=== PATIENT | male | born 1945 | race Caucasian/White ===

== ENCOUNTER 2022-01-31 13:47 | Emergency (ER) | payer OTHER, SELFPAY ==
[2022-01-31] VITALS (24 sets, daily range): BP systolic 136–165; BP diastolic 64–95; PULSE 49–108; RESP 15–25; TEMP 35.7; O2SAT 96–100; BMI 25.0
--- NOTE | 2022-01-31 13:59 | DI.CT.S_ITS ---
PROCEDURE: CT ANGIO CHEST PE PROTOCOL INDICATIONS: sob, hx of PE TECHNIQUE: After the administration of intravenous contrast, 2 mm thick sections acquired from the pulmonary apices to the posterior costophrenic angles. 3-dimensional maximum intensity projection (MIP) coronal and sagittal reformats were then acquired through the thorax. For radiation dose reduction, the following was used: automated exposure control, adjustment of mA and/or kV according to patient size. COMPARISON: None. FINDINGS: Image quality: Excellent. Pulmonary arteries: Pulmonary arteries are normal in size, and demonstrate no intraluminal filling defects to suggest central pulmonary embolism. Lungs and pleura: Lungs are clear. Mild pulmonary interstitial fibrosis. There is a bibasilar predominance. No pleural effusions or pneumothorax. Central and peripheral airways are patent. Mediastinum: Heart size is normal, without pericardial effusion. No mediastinal or hilar adenopathy. Thoracic aorta is normal in caliber and enhancement. Esophagus is normal in caliber, without hiatal hernia. Bones and chest wall: No suspicious bony lesions. Ribs and thoracic spine appear intact throughout. Thyroid gland is unremarkable. No axillary or supraclavicular adenopathy. Abdomen: Calcified gallstones are present in the gallbladder. IMPRESSION: 1. No evidence acute pulmonary emboli. 2. Mild chronic interstitial pulmonary fibrosis. 3. Cholelithiasis. Dictated by: Bowen Michele M.D. on 01/31/2022 at 15:11 Approved by: Bowen Michele M.D. on 01/31/2022 at 15:14
--- NOTE | 2022-01-31 13:59 | DI.RAD.S_ITS ---
PROCEDURE: XR CHEST 1V INDICATIONS: chest pain TECHNIQUE: One view of the chest was acquired. COMPARISON: None. FINDINGS: Surgical changes and devices: None. Lungs and pleura: There is hyperinflation and chronic interstitial changes without focal infiltrate, pleural effusion or pneumothorax. Bibasilar atelectasis and or infiltrate noted. Mediastinum: Mediastinal contours appear normal. Heart size is normal. Bones and chest wall: No suspicious bony lesions. Overlying soft tissues appear unremarkable. IMPRESSION: Hyperinflation, chronic interstitial changes, and superimposed bibasilar mild atelectasis and or infiltrate. Approved by: En Rudolph M.D. on 01/31/2022 at 14:36
[2022-01-31 14:25] LABS: Add Manual Diff / Slide Review NO; Basophils Absolute Auto 100 /uL (0-100); Basophils Percent Auto 1.2 % (0-2); Eosinophils Absolute Auto 200 /uL (0-450); Eosinophils Percent Auto 3.3 % (2-4); Hematocrit 36.8 % (41-53); Hemoglobin 12.7 g/dL (13.5-17.5); Lymphocytes Absolute Auto 1000 /uL (1100-4500); Mean Corpuscular HGB Conc 34.5 % (30-36); Mean Corpuscular Hemoglobin 32.2 PG (26-34); Mean Corpuscular Volume 93.3 fL (80-100); Monocytes Absolute Auto 700 /uL (0-900); Monocytes Percent Auto 14.4 % (3-14); Neutrophils Absolute Auto 2800 /uL (1500-7000); Neutrophils Percent Auto 59.1 % (50-75); Platelet Count 196 X10^3/uL (150-400); Red Blood Cell Count 3.94 X10^6/uL (4.5-5.9); Red Cell Distribution Width 13.6 % (11.6-14.8); White Blood Cell Count 4.8 X10^3/uL (4.5-11.0)
[2022-01-31 14:28] LABS: INR 1.2 (0.9-1.3); Prothrombin Time 13.3 SECONDS (10.1-12.7)
[2022-01-31 14:31] LABS: PTT Partial Thromboplastin Tim 29 SECONDS (26-36)
[2022-01-31 14:33] LABS: Alanine Aminotransferase 14 IU/L (<50); Albumin Globulin Ratio 1.2 (1.0-2.8); Alkaline Phosphatase 49 U/L (38-126); Aspartate Aminotransferase 59 IU/L (17-59); BUN Creatinine Ratio 18.5 (6-22); Bilirubin Total 0.5 mg/dL (0.2-1.3); Blood Urea Nitrogen 15 mg/dL (9-20); Calcium 8.8 mg/dL (8.4-10.2); Carbon Dioxide 29 mmol/L (22-32); Chloride 101 mmol/L (98-107); Creatine Kinase 70 U/L (55-170); Estimated Glomerular Filt Rate > 60 mL/min (>60); Globulin 3.4 g/dL (1.7-4.1); Glucose 112 mg/dL (80-110); HEMOLYSIS < 15 (0-50); Lipase 96 U/L (23-300); Potassium 4.6 mmol/L (3.4-5.1); Sodium 136 mmol/L (137-145); Total Protein 7.4 g/dL (6.3-8.2)
[2022-01-31 14:45] LABS: NT-proBNP (BNP-Adult 18+) 332 pg/mL (<450); Troponin I 0.072 ng/mL (0.01-0.034)
[2022-01-31 14:57] LABS: COVID19 -Nasal RAPID Negative (Negative)
--- NOTE | 2022-01-31 17:45 | ED_ITS ---
HPI - SOB/Dyspnea <Susanna Davila DO - Last Filed: 01/31/22 19:26> General Chief Complaint: Shortness of Breath/Dyspnea Stated Complaint: SOB Time Seen by Provider: 01/31/22 13:59 Source: patient Mode of arrival: Ambulatory Limitations: no limitations History of Present Illness HPI Narrative: This is a 76 year old male with history of pulmonary emboli after prolonged flight and GERD. Patient states that yesterday he felt a little bit short of breath. He states that this started while he was sitting on the couch. Today in the morning he went for his usual walk he usually walks quite extensively and states he became very short of breath and was unable to continue his walk. Patient states that he returned home rested but took a prolonged period of time for him to catch his breath. He states he had a little bit of mild chest pressure during this which has resolved. He states that his shortness of breath has improved he feels very mildly short of breath still. Denies fevers or chills. No cold cough or congestion. No diaphoresis. No syncope or lightheadedness. No nausea or vomiting. No other GI or urinary symptoms. No swelling in extremities. Patient has not had any prior cardiac interventions or stents, no prior surgeries. No known drug allergies. No tobacco, 1 alcoholic drink nightly, no illicit. He is accompanied by his . Related Data Home Medications Medication Instructions Recorded Confirmed lutein 20 mg tablet 20 mg PO DAILY 07/02/20 12/21/20 Previous Rx's Medication Instructions Recorded tadalafil 20 mg tablet 20 mg PO DAILY PRN sexual activity 05/16/21 #30 tabs pantoprazole 40 mg tablet,delayed 40 mg PO DAILY #90 tabs 09/05/21 release Allergies Allergy/AdvReac Type Severity Reaction Status Date / Time No Known Drug Allergies Allergy Unverified 12/21/20 13:23 Review of Systems <Susanna Davila DO - Last Filed: 01/31/22 19:26> Review of Systems ROS Unobtainable: All systems reviewed & are unremarkable except as noted in HPI and below Patient History <Susanna Davila DO - Last Filed: 01/31/22 19:26> Medical History Pulmonary embolism Social History Smoking Status: Former smoker Smoking Status: Former smoker alcohol intake frequency: holidays/special occasions only Substance Use Type: does not use Exam <Susanna Davila DO - Last Filed: 01/31/22 19:26> Narrative Exam Narrative: GENERAL: Alert and oriented x three, mild distress HEENT: Head normocephalic, atraumatic, EOMI, pupils reactive, face symmetric, moist mucous membranes NECK: Supple, full range of motion CARDIOVASCULAR: Regular rate and rhythm without murmurs, rubs or gallops. RESPIRATORY: Breath sounds equal bilaterally, no wheezes rales or rhonchi. ABDOMEN: Soft, nontender. Normoactive bowel sounds all 4 quadrants. No guarding or rebound, rigidity, no mass : No CVA tenderness EXTREMITIES: Normal range of motion, no clubbing or edema. Neurovascularly inta ct NEUROLOGICAL: Cranial nerves II through XII grossly intact. Moving all extremities SKIN: Warm, dry, no petechiae, no rashes or lesions. Initial Vital Signs Initial Vital Signs: Vital Signs Temperature 96.3 F L 01/31/22 13:55 Pulse Rate 61 01/31/22 13:55 Respiratory Rate 16 01/31/22 13:55 Blood Pressure 154/73 H 01/31/22 13:55 Pulse Oximetry 100 01/31/22 13:55 Oxygen Delivery Method 01/31/22 13:55 <Viviana Rivera MD - Last Filed: 02/01/22 08:21> Initial Vital Signs Initial Vital Signs: Vital Signs Temperature 96.3 F L 01/31/22 13:55 Pulse Rate 61 01/31/22 13:55 Respiratory Rate 16 01/31/22 13:55 Blood Pressure 154/73 H 01/31/22 13:55 Pulse Oximetry 100 01/31/22 13:55 Oxygen Delivery Method 01/31/22 13:55 Course <Susanna Davila DO - Last Filed: 01/31/22 19:26> Orders Ordered: Discontinued Medications Aspirin (Aspirin 81 Mg Chew Tab) 324 mg PO NOW ONE Stop: 01/31/22 17:52 Last Admin: 01/31/22 18:22 Dose: 324 mg Documented By: NR Atorvastatin Calcium (Atorvastatin 20 Mg Tablet) 80 mg PO BEDTIME [facility] Last Admin: 01/31/22 21:09 Dose: 80 mg Documented By: NR Heparin Sodium (Porcine) (Heparin 5,000 Unit/Ml Vial) 5,000 unit IV NOW ONE Stop: 01/31/22 17:52 Last Admin: 01/31/22 18:22 Dose: 5,000 unit Documented By: NR Heparin Sodium/Dextrose (Heparin Drip) 25,000 unit in 500 mls @ 20.14 mls/hr IV CONT [facility]; Protocol Last Titration: 01/31/22 23:41 Dose: 12 units/kg/hr, 20.14 mls/hr Documented By: Admin: 01/31/22 18:23 Dose: 12 units/kg/hr, 20.14 mls/hr Documented By: NR Morphine Sulfate (Morphine 2 Mg/Ml Inj) 2 mg IV Q5MIN PRN PRN Reason: Chest Pain Naloxone HCl (Naloxone 0.4 Mg/Ml Vial) 0.2 mg IV Q2MIN PRN PRN Reason: Opiate Reversal Nitroglycerin (Nitroglycerin 0.4 Mg Sl Tab) 0.4 mg SL [id number] PRN PRN Reason: chest pain Nitroglycerin (Nitroglycerin Oint 1 Inch/Gm Oint...G.) 0.5 inch TOP NOW ONE Stop: 01/31/22 21:58 Last Admin: 01/31/22 22:20 Dose: 0.5 inch Documented By: RICHY Pantoprazole Sodium (Pantoprazole 40 Mg Vial) 20 mg IV BID [facility] Last Admin: 01/31/22 21:09 Dose: 20 mg Documented By: LORELEI Consultations Consultation #1: Dr. Hadley, cardiology at [facility]. Agrees with current plan, aspirin heparin nitro if needed for recurrent chest pain or pressure. Statin therapy and seeking placement some place that has catheterization availability. Time: 18:32 Vital Signs Vital signs: Vital Signs - 8 hr 01/31/22 13:55 01/31/22 16:26 01/31/22 16:27 Temperature 96.3 F L Pulse Rate 61 61 61 Respiratory Rate 16 Blood Pressure 154/73 H Pulse Oximetry 100 99 100 Oxygen Delivery Method Room Air 01/31/22 16:27 01/31/22 16:30 01/31/22 16:31 Temperature Pulse Rate 60 60 Respiratory Rate 25 H 24 Blood Pressure 143/95 H Pulse Oximetry 99 100 Oxygen Delivery Method 01/31/22 16:31 01/31/22 17:00 01/31/22 17:01 Temperature Pulse Rate 55 L Respiratory Rate 25 H Blood Pressure 165/76 H 142/65 H Pulse Oximetry 100 Oxygen Delivery Method 01/31/22 17:01 01/31/22 17:30 01/31/22 17:30 Temperature Pulse Rate 55 L 54 L Respiratory Rate 21 20 Blood Pressure 138/64 Pulse Oximetry 100 100 Oxygen Delivery Method 01/31/22 18:10 01/31/22 18:28 01/31/22 18:28 Temperature Pulse Rate 57 L 94 H Respiratory Rate Blood Pressure 164/71 H Pulse Oximetry 96 97 Oxygen Delivery Method 01/31/22 18:30 01/31/22 19:00 01/31/22 19:30 Temperature Pulse Rate 69 108 H Respiratory Rate Blood Pressure Pulse Oximetry 100 99 99 Oxygen Delivery Method 01/31/22 20:00 01/31/22 20:01 01/31/22 20:01 Temperature Pulse Rate 67 79 Respiratory Rate Blood Pressure 153/74 H Pulse Oximetry 98 98 Oxygen Delivery Method 01/31/22 20:30 01/31/22 21:00 01/31/22 21:30 Temperature Pulse Rate 53 L 55 L 55 L Respiratory Rate 15 16 Blood Pressure Pulse Oximetry 99 99 100 Oxygen Delivery Method <Viviana Rivera MD - Last Filed: 02/01/22 08:21> Orders Ordered: Discontinued Medications Aspirin (Aspirin 81 Mg Chew Tab) 324 mg PO NOW ONE Stop: 01/31/22 17:52 Last Admin: 01/31/22 18:22 Dose: 324 mg Documented By: LORELEI Atorvastatin Calcium (Atorvastatin 20 Mg Tablet) 80 mg PO BEDTIME [facility] Last Admin: 01/31/22 21:09 Dose: 80 mg Documented By: LORELEI Heparin Sodium (Porcine) (Heparin 5,000 Unit/Ml Vial) 5,000 unit IV NOW ONE Stop: 01/31/22 17:52 Last Admin: 01/31/22 18:22 Dose: 5,000 unit Documented By: LORELEI Heparin Sodium/Dextrose (Heparin Drip) 25,000 unit in 500 mls @ 20.14 mls/hr IV CONT [facility]; Protocol Last Titration: 01/31/22 23:41 Dose: 12 units/kg/hr, 20.14 mls/hr Documented By: Admin: 01/31/22 18:23 Dose: 12 units/kg/hr, 20.14 mls/hr Documented By: LORELEI Morphine Sulfate (Morphine 2 Mg/Ml Inj) 2 mg IV Q5MIN PRN PRN Reason: Chest Pain Naloxone HCl (Naloxone 0.4 Mg/Ml Vial) 0.2 mg IV Q2MIN PRN PRN Reason: Opiate Reversal Nitroglycerin (Nitroglycerin 0.4 Mg Sl Tab) 0.4 mg SL [id number] PRN PRN Reason: chest pain Nitroglycerin (Nitroglycerin Oint 1 Inch/Gm Oint...G.) 0.5 inch TOP NOW ONE Stop: 01/31/22 21:58 Last Admin: 01/31/22 22:20 Dose: 0.5 inch Documented By: RICHY Pantoprazole Sodium (Pantoprazole 40 Mg Vial) 20 mg IV BID [facility] Last Admin: 01/31/22 21:09 Dose: 20 mg Documented By: LORELEI Vital Signs Vital signs: Vital Signs - 8 hr 01/31/22 13:55 01/31/22 16:26 01/31/22 16:27 Temperature 96.3 F L Pulse Rate 61 61 61 Respiratory Rate 16 Blood Pressure 154/73 H Pulse Oximetry 100 99 100 Oxygen Delivery Method Room Air 01/31/22 16:27 01/31/22 16:30 01/31/22 16:31 Temperature Pulse Rate 60 60 Respiratory Rate 25 H 24 Blood Pressure 143/95 H Pulse Oximetry 99 100 Oxygen Delivery Method 01/31/22 16:31 01/31/22 17:00 01/31/22 17:01 Temperature Pulse Rate 55 L Respiratory Rate 25 H Blood Pressure 165/76 H 142/65 H Pulse Oximetry 100 Oxygen Delivery Method 01/31/22 17:01 01/31/22 17:30 01/31/22 17:30 Temperature Pulse Rate 55 L 54 L Respiratory Rate 21 20 Blood Pressure 138/64 Pulse Oximetry 100 100 Oxygen Delivery Method 01/31/22 18:10 01/31/22 18:28 01/31/22 18:28 Temperature Pulse Rate 57 L 94 H Respiratory Rate Blood Pressure 164/71 H Pulse Oximetry 96 97 Oxygen Delivery Method 01/31/22 18:30 01/31/22 19:00 01/31/22 19:30 Temperature Pulse Rate 69 108 H Respiratory Rate Blood Pressure Pulse Oximetry 100 99 99 Oxygen Delivery Method 01/31/22 20:00 01/31/22 20:01 01/31/22 20:01 Temperature Pulse Rate 67 79 Respiratory Rate Blood Pressure 153/74 H Pulse Oximetry 98 98 Oxygen Delivery Method 01/31/22 20:30 01/31/22 21:00 01/31/22 21:30 Temperature Pulse Rate 53 L 55 L 55 L Respiratory Rate 15 16 Blood Pressure Pulse Oximetry 99 99 100 Oxygen Delivery Method MDM - SOB/Dyspnea <Susanna Davila, - Last Filed: 01/31/22 19:26> Lab Data Result diagrams: 01/31/22 14:05 01/31/22 14:05 Labs: Lab Results 01/31/22 01/31/22 01/31/22 Range/Units 14:03 14:05 14:05 WBC 4.8 (4.5-11.0) X10^3/uL RBC 3.94 L (4.5-5.9) X10^6/uL Hgb 12.7 L (13.5-17.5) g/dL Hct 36.8 L (41-53) % MCV 93.3 (80-100) fL MCH 32.2 (26-34) PG MCHC 34.5 (30-36) % RDW 13.6 (11.6-14.8) % Plt Count 196 (150-400) X10^3/uL Neut % (Auto) 59.1 (50-75) % Lymph % (Auto) 22.0 L (25-40) % [place] % (Auto) 14.4 H (3-14) % Eos % (Auto) 3.3 (2-4) % Baso % (Auto) 1.2 (0-2) % Neut # (Auto) 2800 (7524-2297) /uL Lymph # (Auto) 1000 L (1969-1563) /uL [place] # (Auto) 700 (0-900) /uL Eos # (Auto) 200 (0-450) /uL Baso # (Auto) 100 (0-100) /uL PT 13.3 H (10.1-12.7) SECONDS INR 1.2 (0.9-1.3) APTT 29 (26-36) SECONDS Sodium (137-145) mmol/L Potassium (3.4-5.1) mmol/L Chloride (98-107) mmol/L Carbon Dioxide (22-32) mmol/L BUN (9-20) mg/dL Creatinine (0.66-1.25) mg/dL Estimated GFR (>60) mL/min BUN/Creatinine Ratio (6-22) Glucose (80-110) mg/dL Calcium (8.4-10.2) mg/dL Total Bilirubin (0.2-1.3) mg/dL AST (17-59) IU/L ALT (<50) IU/L Alkaline Phosphatase (38-126) U/L Total Creatine Kinase (55-170) U/L CK-MB (CK-2) CK-MB (CK-2) Rel Index Troponin I (0.01-0.034) ng/mL NT-Pro-B Natriuret Pep (<450) pg/mL Total Protein (6.3-8.2) g/dL Albumin (3.5-5.0) g/dL Globulin (1.7-4.1) g/dL Albumin/Globulin Ratio (1.0-2.8) Lipase (23-300) U/L SARS-CoV-2 (PCR) Negative (Negative) 01/31/22 01/31/22 01/31/22 Range/Units 14:05 16:35 18:00 WBC (4.5-11.0) X10^3/uL RBC (4.5-5.9) X10^6/uL Hgb (13.5-17.5) g/dL Hct (41-53) % MCV (80-100) fL MCH (26-34) PG MCHC (30-36) % RDW (11.6-14.8) % Plt Count (150-400) X10^3/uL Neut % (Auto) (50-75) % Lymph % (Auto) (25-40) % [place] % (Auto) (3-14) % Eos % (Auto) (2-4) % Baso % (Auto) (0-2) % Neut # (Auto) (7837-1994) /uL Lymph # (Auto) (2343-8131) /uL [place] # (Auto) (0-900) /uL Eos # (Auto) (0-450) /uL Baso # (Auto) (0-100) /uL PT (10.1-12.7) SECONDS INR (0.9-1.3) APTT 30 (26-36) SECONDS Sodium 136 L (137-145) mmol/L Potassium 4.6 (3.4-5.1) mmol/L Chloride 101 (98-107) mmol/L Carbon Dioxide 29 (22-32) mmol/L BUN 15 (9-20) mg/dL Creatinine 0.81 (0.66-1.25) mg/dL Estimated GFR > 60 (>60) mL/min BUN/Creatinine Ratio 18.5 (6-22) Glucose 112 H (80-110) mg/dL Calcium 8.8 (8.4-10.2) mg/dL Total Bilirubin 0.5 (0.2-1.3) mg/dL AST 59 (17-59) IU/L ALT 14 (<50) IU/L Alkaline Phosphatase 49 (38-126) U/L Total Creatine Kinase 70 (55-170) U/L CK-MB (CK-2) TNP CK-MB (CK-2) Rel Index TNP Troponin I 0.072 H 0.259 H* (0.01-0.034) ng/mL NT-Pro-B Natriuret Pep 332 (<450) pg/mL Total Protein 7.4 (6.3-8.2) g/dL Albumin 4.0 (3.5-5.0) g/dL Globulin 3.4 (1.7-4.1) g/dL Albumin/Globulin Ratio 1.2 (1.0-2.8) Lipase 96 (23-300) U/L SARS-CoV-2 (PCR) (Negative) 01/31/22 Range/Units 22:30 WBC (4.5-11.0) X10^3/uL RBC (4.5-5.9) X10^6/uL Hgb (13.5-17.5) g/dL Hct (41-53) % MCV (80-100) fL MCH (26-34) PG MCHC (30-36) % RDW (11.6-14.8) % Plt Count (150-400) X10^3/uL Neut % (Auto) (50-75) % Lymph % (Auto) (25-40) % [place] % (Auto) (3-14) % Eos % (Auto) (2-4) % Baso % (Auto) (0-2) % Neut # (Auto) (3552-4906) /uL Lymph # (Auto) (5775-7469) /uL [place] # (Auto) (0-900) /uL Eos # (Auto) (0-450) /uL Baso # (Auto) (0-100) /uL PT (10.1-12.7) SECONDS INR (0.9-1.3) APTT (26-36) SECONDS Sodium (137-145) mmol/L Potassium (3.4-5.1) mmol/L Chloride (98-107) mmol/L Carbon Dioxide (22-32) mmol/L BUN (9-20) mg/dL Creatinine (0.66-1.25) mg/dL Estimated GFR (>60) mL/min BUN/Creatinine Ratio (6-22) Glucose (80-110) mg/dL Calcium (8.4-10.2) mg/dL Total Bilirubin (0.2-1.3) mg/dL AST (17-59) IU/L ALT (<50) IU/L Alkaline Phosphatase (38-126) U/L Total Creatine Kinase (55-170) U/L CK-MB (CK-2) CK-MB (CK-2) Rel Index Troponin I 0.736 H* (0.01-0.034) ng/mL NT-Pro-B Natriuret Pep (<450) pg/mL Total Protein (6.3-8.2) g/dL Albumin (3.5-5.0) g/dL Globulin (1.7-4.1) g/dL Albumin/Globulin Ratio (1.0-2.8) Lipase (23-300) U/L SARS-CoV-2 (PCR) (Negative) Imaging Data Chest x-ray: Radiologist's Impression: Avni Isaacs Jr?(Miki)??76??M??1945 ? Allergy/Adv: No Known Drug Allergies (More??) Close Chest X-Ray (Signed) En Rudolph - 01/31/22 Chest CTA (Signed) Bowen Michele - 01/31/22 Launch?Image [address] [address] XRay Report Signed Patient: Avni Isaacs Jr MR#: [id number] : 1945 Acct:[id number] Age/Sex: 76 / M Date of Service: 01/31/22 Loc: ED Accession Number: [id number] ?? Procedure: XR chest 1V Ordering Provider: Susanna Davila D.O. PROCEDURE:? XR CHEST 1V ? INDICATIONS:? chest pain ? TECHNIQUE:? One view of the chest was acquired.? ? COMPARISON:? None. ? FINDINGS:? ? Surgical changes and devices:? None.? ? Lungs and pleura:? There is hyperinflation and chronic interstitial changes without focal infiltrate, pleural effusion or pneumothorax.? Bibasilar atelectasis and or infiltrate noted. ? Mediastinum:? Mediastinal contours appear normal.? Heart size is normal.? ? Bones and chest wall:? No suspicious bony lesions.? Overlying soft tissues appear unremarkable.? ? IMPRESSION:? ? Hyperinflation, chronic interstitial changes, and superimposed bibasilar mild atelectasis and or infiltrate. ? ? ? Approved by: En Rudolph M.D. on 01/31/2022 at 14:36? CT scan - chest: Radiologist's Impression: [place] [address] CT Scan Report Signed Patient: Avni Isaacs Jr MR#: [id number] : 1945 Acct:[id number] Age/Sex: 76 / M Date of Service: 01/31/22 Loc: ED Accession Number: [id number] ?? Procedure: CT angio chest PE protocol Ordering Provider: Susanna Davila D.O. PROCEDURE:? CT ANGIO CHEST PE PROTOCOL ? INDICATIONS:? sob, hx of PE ? TECHNIQUE:? After the administration of intravenous contrast, 2 mm thick sections acquired from the pulmonary apices to the posterior costophrenic angles.? 3-dimensional maximum intensity projection (MIP) coronal and sagittal reformats were then acquired through the thorax.? For radiation dose reduction, the following was used:? automated exposure control, adjustment of mA and/or kV according to patient size.? ? COMPARISON:? None. ? FINDINGS:? Image quality:? Excellent.? ? Pulmonary arteries:? Pulmonary arteries are normal in size, and demonstrate no intraluminal filling defects to suggest central pulmonary embolism.? ? Lungs and pleura:? Lungs are clear.? Mild pulmonary interstitial fibrosis.? There is a bibasilar predominance.? No pleural effusions or pneumothorax.? Central and peripheral airways are patent.? ? Mediastinum:? Heart size is normal, without pericardial effusion.? No mediastinal or hilar adenopathy.? Thoracic aorta is normal in caliber and enhancement.? Esop hagus is normal in caliber, without hiatal hernia.? ? Bones and chest wall:? No suspicious bony lesions.? Ribs and thoracic spine appear intact throughout.? Thyroid gland is unremarkable.? No axillary or supraclavicular adenopathy.? ? Abdomen:? Calcified gallstones are present in the gallbladder. ? IMPRESSION:? ? 1. No evidence acute pulmonary emboli. ? 2. Mild chronic interstitial pulmonary fibrosis. ? 3. Cholelithiasis.? ? ? Dictated by: Bowen Michele M.D. on 01/31/2022 at 15:11 ? ? Approved by: Bowen Michele M.D. on 01/31/2022 at 15:14?? ECG Data Attestation: I personally reviewed and interpreted this ECG as follows: Prior ECG tracings: not available for review Interpretation: EKG shows inverted T-wave in 1 and aVL, no elevation but deep T-wave in V1. No priors for comparison. Rate of 63 ID 174 QRS of 94 and QTC of 409. EKG 2 shows upright T-waves in 1 and aVL with an inversion in AVR, inversion in lead 3 which is not appreciated on prior EKG as well as inverted T-waves in V1 V2. EKG 3 was obtained 1/2 hour later secondary to unique changes and prior, patient has upright T-waves in 1 but now down in AVR and aVL, upright in lead 3 was down words in lead 3 on 2nd but not 1st EKG. Patient continues to have changes in V1 V2 that do not appear to be more dynamic and no new elevation is appreciated throughout each EKG. MDM Narrative Medical decision making narrative: This is a 76-year-old male with history of pulmonary emboli that were provoked by a 20 hour flight, patient has been off blood thinners for several years. Developed shortness of breath last night without any exertion and had exertional dyspnea today that improved with rest but took a prolonged period of time to resolve. Patient was given aspirin started on heparin after noting potentially dynamic changes on EKG with no ST elevation and troponin trending upwards from indeterminate 2 positive. He does not have any acute chest pain or shortness of breath currently. Chest x-ray does not show any acute changes, BNP is negative, patient has normal renal function, electrolytes with a hemoglobin of 12. Patient COVID swab is negative. CT PE was obtained to rule out pulmonary emboli with his prior history and is negative for emboli, there is some mild chronic interstitial pulmonary fibrosis and cholelithiasis but no other changes appreciated. Case was discussed with cardiology who agrees with plan for aspirin, heparin and statin and goal to find transfer to facility with blood and plasma laboratory assistant. There is currently a regional bed shortage so we will continue to look for this overnight and patient was signed out to Dr. Rivera while awaiting potential placement. <Viviana Rivera MD - Last Filed: 02/01/22 08:21> Lab Data Labs: Lab Results 01/31/22 01/31/22 01/31/22 Range/Units 14:03 14:05 14:05 WBC 4.8 (4.5-11.0) X10^3/uL RBC 3.94 L (4.5-5.9) X10^6/uL Hgb 12.7 L (13.5-17.5) g/dL Hct 36.8 L (41-53) % MCV 93.3 (80-100) fL MCH 32.2 (26-34) PG MCHC 34.5 (30-36) % RDW 13.6 (11.6-14.8) % Plt Count 196 (150-400) X10^3/uL Neut % (Auto) 59.1 (50-75) % Lymph % (Auto) 22.0 L (25-40) % [place] % (Auto) 14.4 H (3-14) % Eos % (Auto) 3.3 (2-4) % Baso % (Auto) 1.2 (0-2) % Neut # (Auto) 2800 (2099-0366) /uL Lymph # (Auto) 1000 L (7254-1690) /uL [place] # (Auto) 700 (0-900) /uL Eos # (Auto) 200 (0-450) /uL Baso # (Auto) 100 (0-100) /uL PT 13.3 H (10.1-12.7) SECONDS INR 1.2 (0.9-1.3) APTT 29 (26-36) SECONDS Sodium (137-145) mmol/L Potassium (3.4-5.1) mmol/L Chloride (98-107) mmol/L Carbon Dioxide (22-32) mmol/L BUN (9-20) mg/dL Creatinine (0.66-1.25) mg/dL Estimated GFR (>60) mL/min BUN/Creatinine Ratio (6-22) Glucose (80-110) mg/dL Calcium (8.4-10.2) mg/dL Total Bilirubin (0.2-1.3) mg/dL AST (17-59) IU/L ALT (<50) IU/L Alkaline Phosphatase (38-126) U/L Total Creatine Kinase (55-170) U/L CK-MB (CK-2) CK-MB (CK-2) Rel Index Troponin I (0.01-0.034) ng/mL NT-Pro-B Natriuret Pep (<450) pg/mL Total Protein (6.3-8.2) g/dL Albumin (3.5-5.0) g/dL Globulin (1.7-4.1) g/dL Albumin/Globulin Ratio (1.0-2.8) Lipase (23-300) U/L SARS-CoV-2 (PCR) Negative (Negative) 01/31/22 01/31/22 01/31/22 Range/Units 14:05 16:35 18:00 WBC (4.5-11.0) X10^3/uL RBC (4.5-5.9) X10^6/uL Hgb (13.5-17.5) g/dL Hct (41-53) % MCV (80-100) fL MCH (26-34) PG MCHC (30-36) % RDW (11.6-14.8) % Plt Count (150-400) X10^3/uL Neut % (Auto) (50-75) % Lymph % (Auto) (25-40) % [place] % (Auto) (3-14) % Eos % (Auto) (2-4) % Baso % (Auto) (0-2) % Neut # (Auto) (5207-3744) /uL Lymph # (Auto) (1946-8444) /uL [place] # (Auto) (0-900) /uL Eos # (Auto) (0-450) /uL Baso # (Auto) (0-100) /uL PT (10.1-12.7) SECONDS INR (0.9-1.3) APTT 30 (26-36) SECONDS Sodium 136 L (137-145) mmol/L Potassium 4.6 (3.4-5.1) mmol/L Chloride 101 (98-107) mmol/L Carbon Dioxide 29 (22-32) mmol/L BUN 15 (9-20) mg/dL Creatinine 0.81 (0.66-1.25) mg/dL Estimated GFR > 60 (>60) mL/min BUN/Creatinine Ratio 18.5 (6-22) Glucose 112 H (80-110) mg/dL Calcium 8.8 (8.4-10.2) mg/dL Total Bilirubin 0.5 (0.2-1.3) mg/dL AST 59 (17-59) IU/L ALT 14 (<50) IU/L Alkaline Phosphatase 49 (38-126) U/L Total Creatine Kinase 70 (55-170) U/L CK-MB (CK-2) TNP CK-MB (CK-2) Rel Index TNP Troponin I 0.072 H 0.259 H* (0.01-0.034) ng/mL NT-Pro-B Natriuret Pep 332 (<450) pg/mL Total Protein 7.4 (6.3-8.2) g/dL Albumin 4.0 (3.5-5.0) g/dL Globulin 3.4 (1.7-4.1) g/dL Albumin/Globulin Ratio 1.2 (1.0-2.8) Lipase 96 (23-300) U/L SARS-CoV-2 (PCR) (Negative) 01/31/22 Range/Units 22:30 WBC (4.5-11.0) X10^3/uL RBC (4.5-5.9) X10^6/uL Hgb (13.5-17.5) g/dL Hct (41-53) % MCV (80-100) fL MCH (26-34) PG MCHC (30-36) % RDW (11.6-14.8) % Plt Count (150-400) X10^3/uL Neut % (Auto) (50-75) % Lymph % (Auto) (25-40) % [place] % (Auto) (3-14) % Eos % (Auto) (2-4) % Baso % (Auto) (0-2) % Neut # (Auto) (5085-1937) /uL Lymph # (Auto) (7934-6683) /uL [place] # (Auto) (0-900) /uL Eos # (Auto) (0-450) /uL Baso # (Auto) (0-100) /uL PT (10.1-12.7) SECONDS INR (0.9-1.3) APTT (26-36) SECONDS Sodium (137-145) mmol/L Potassium (3.4-5.1) mmol/L Chloride (98-107) mmol/L Carbon Dioxide (22-32) mmol/L BUN (9-20) mg/dL Creatinine (0.66-1.25) mg/dL Estimated GFR (>60) mL/min BUN/Creatinine Ratio (6-22) Glucose (80-110) mg/dL Calcium (8.4-10.2) mg/dL Total Bilirubin (0.2-1.3) mg/dL AST (17-59) IU/L ALT (<50) IU/L Alkaline Phosphatase (38-126) U/L Total Creatine Kinase (55-170) U/L CK-MB (CK-2) CK-MB (CK-2) Rel Index Troponin I 0.736 H* (0.01-0.034) ng/mL NT-Pro-B Natriuret Pep (<450) pg/mL Total Protein (6.3-8.2) g/dL Albumin (3.5-5.0) g/dL Globulin (1.7-4.1) g/dL Albumin/Globulin Ratio (1.0-2.8) Lipase (23-300) U/L SARS-CoV-2 (PCR) (Negative) Imaging Data Chest x-ray: Radiologist's Impression: Accession Number: [id number] ?? Procedure: XR chest 1V Ordering Provider: Susanna Davila D.O. PROCEDURE:? XR CHEST 1V ? INDICATIONS:? chest pain ? TECHNIQUE:? One view of the chest was acquired.? ? COMPARISON:? None. ? FINDINGS:? ? Surgical changes and devices:? None.? ? Lungs and pleura:? There is hyperinflation and chronic interstitial changes without focal infiltrate, pleural effusion or pneumothorax.? Bibasilar atelectasis and or infiltrate noted. ? Mediastinum:? Mediastinal contours appear normal.? Heart size is normal.? ? Bones and chest wall:? No suspicious bony lesions.? Overlying soft tissues appear unremarkable.? ? IMPRESSION:? ? Hyperinflation, chronic interstitial changes, and superimposed bibasilar mild atelectasis and or infiltrate. ? ? ? Approved by: En Rudolph M.D. on 01/31/2022 at 14:36? CT scan - chest: Radiologist's Impression: PROCEDURE:? CT ANGIO CHEST PE PROTOCOL ? INDICATIONS:? sob, hx of PE ? TECHNIQUE:? After the administration of intravenous contrast, 2 mm thick sections acquired from the pulmonary apices to the posterior costophrenic angles.? 3-dimensional maximum intensity projection (MIP) coronal and sagittal reformats were then acquired through the thorax.? For radiation dose reduction, the following was used:? automated exposure control, adjustment of mA and/or kV according to patient size.? ? COMPARISON:? None. ? FINDINGS:? Image quality:? Excellent.? ? Pulmonary arteries:? Pulmonary arteries are normal in size, and demonstrate no intraluminal filling defects to suggest central pulmonary embolism.? ? Lungs and pleura:? Lungs are clear.? Mild pulmonary interstitial fibrosis.? There is a bibasilar predominance.? No pleural effusions or pneumothorax.? Central and peripheral airways are patent.? ? Mediastinum:? Heart size is normal, without pericardial effusion.? No m ediastinal or hilar adenopathy.? Thoracic aorta is normal in caliber and enhancement.? Esophagus is normal in caliber, without hiatal hernia.? ? Bones and chest wall:? No suspicious bony lesions.? Ribs and thoracic spine appear intact throughout.? Thyroid gland is unremarkable.? No axillary or supraclavicular adenopathy.? ? Abdomen:? Calcified gallstones are present in the gallbladder. ? IMPRESSION:? ? 1. No evidence acute pulmonary emboli. ? 2. Mild chronic interstitial pulmonary fibrosis. ? 3. Cholelithiasis.? ? ? Dictated by: Bowen Michele M.D. on 01/31/2022 at 15:11 ? ? Approved by: Bowen Michele M.D. on 01/31/2022 at 15:14?? MDM Narrative Medical decision making narrative: This is a 76-year-old male with history of pulmonary emboli that were provoked by a 20 hour flight, patient has been off blood thinners for several years. Developed shortness of breath last night without any exertion and had exertional dyspnea today that improved with rest but took a prolonged period of time to resolve. Patient was given aspirin started on heparin after noting potentially dynamic changes on EKG with no ST elevation and troponin trending upwards from indeterminate 2 positive. He does not have any acute chest pain or shortness of breath currently. Chest x-ray does not show any acute changes, BNP is negative, patient has normal renal function, electrolytes with a hemoglobin of 12. Patient COVID swab is negative. CT PE was obtained to rule out pulmonary emboli with his prior history and is negative for emboli, there is some mild chronic interstitial pulmonary fibrosis and cholelithiasis but no other changes appreciated. Case was discussed with cardiology who agrees with plan for aspirin, heparin and statin and goal to find transfer to facility with blood and plasma laboratory assistant. There is currently a regional bed shortage so we will continue to look for this overnight and patient was signed out to Dr. Rivera while awaiting potential placement. 10pm [facility] has a bed available. Reviewed care with Dr Abdullahi, cardiology. Agrees with current care, suggests adding topical nitrate and admit to hosptitalist service. Discharge Plan Departure Patient Disposition: [facility] Clinical Impression: Non-ST elevation [place] (NSTEMI) Prescriptions: No Action tadalafil 20 mg tablet 20 mg PO DAILY PRN (Reason: sexual activity) Qty: 30 5RF pantoprazole 40 mg tablet,delayed release (DR/EC) 40 mg PO DAILY Qty: 90 1RF lutein 20 mg tablet 20 mg PO DAILY Rx Instructions: give with meal/snack Referrals: Larry Arnold MD [Primary Care Provider] -
[2022-01-31 17:46] LABS: Troponin I 0.259 ng/mL (0.01-0.034)
[2022-01-31] MEDS: ASPIRIN 81 MG CHEW TAB 324 MG PO (18:22)
[2022-01-31] MEDS: HEPARIN 5,000 UNIT/ML VIAL 5000 UNIT IV (18:22)
[2022-01-31] MEDS: HEPARIN DRIP 25,000 UNIT/500 ML IV.SOLN 20.14 UNIT IV (18:23)
[2022-01-31 19:50] LABS: PTT Partial Thromboplastin Tim 30 SECONDS (26-36)
[2022-01-31] MEDS: ATORVASTATIN 20 MG TABLET 80 MG PO (21:09)
[2022-01-31] MEDS: PANTOPRAZOLE 40 MG VIAL 20 MG IV (21:09)
[2022-01-31] MEDS: NITROGLYCERIN OINT 1 INCH/GM OINT...G. 0.5 INCH TOP (22:20)
[2022-01-31 23:03] LABS: Troponin I 0.736 ng/mL (0.01-0.034)
== END 2022-01-31 23:55 | disposition short-term general hospital (02) ==
PROVIDERS: Emergency Provider Emergency Medicine; PCP Student in an Organized Health Care Education/Training Program
DX: I21.4 Non-ST elevation (NSTEMI) myocardial infarction (principal); Z86.711 Personal history of pulmonary embolism; Z20.822 Contact with and (suspected) exposure to COVID-19
CPT/HCPCS: 36415; 71045; 71275; 80053; 82550; 83690; 83880; 84484; 85025; 85610; 85730; 87635; 93005; 96365; 96366; 96375; 99284; C9803; C9113; J1644; Q9967

== ENCOUNTER → 2022-03-28 07:50 | Outpatient (CLI) | payer OTHER, SELFPAY ==
[2022-03-28 08:49] LABS: Add Manual Diff / Slide Review NO; Basophils Absolute Auto 0 /uL (0-100); Basophils Percent Auto 1.1 % (0-2); Eosinophils Absolute Auto 200 /uL (0-450); Eosinophils Percent Auto 4.1 % (2-4); Hematocrit 38.7 % (41-53); Hemoglobin 12.9 g/dL (13.5-17.5); Lymphocytes Absolute Auto 1100 /uL (1100-4500); Lymphocytes Percent Auto 24.8 % (25-40); Mean Corpuscular HGB Conc 33.3 % (30-36); Mean Corpuscular Hemoglobin 31.3 PG (26-34); Monocytes Absolute Auto 800 /uL (0-900); Neutrophils Absolute Auto 2300 /uL (1500-7000); Platelet Count 193 X10^3/uL (150-400); Red Blood Cell Count 4.12 X10^6/uL (4.5-5.9); White Blood Cell Count 4.4 X10^3/uL (4.5-11.0)
[2022-03-28 09:18] LABS: Alanine Aminotransferase 21 IU/L (<50); Albumin 3.7 g/dL (3.5-5.0); Albumin Globulin Ratio 1.2 (1.0-2.8); Alkaline Phosphatase 55 U/L (38-126); Aspartate Aminotransferase 64 IU/L (17-59); BUN Creatinine Ratio 17.9 (6-22); Bilirubin Total 0.5 mg/dL (0.2-1.3); Blood Urea Nitrogen 15 mg/dL (9-20); Calcium 8.7 mg/dL (8.4-10.2); Carbon Dioxide 28 mmol/L (22-32); Chloride 104 mmol/L (98-107); Cholesterol 118 mg/dL (140-199); Estimated Glomerular Filt Rate > 60 mL/min (>60); Glucose 99 mg/dL (80-110); HDL Cholesterol 51 mg/dL (40-60); HEMOLYSIS < 15 (0-50); LDL Cholesterol Calculated 54 mg/dL (<100); Potassium 5.2 mmol/L (3.4-5.1); Sodium 139 mmol/L (137-145); Total Protein 6.7 g/dL (6.3-8.2); Triglycerides 64 mg/dL (35-150)
== END ==
PROVIDERS: PCP Student in an Organized Health Care Education/Training Program; Referring Provider Nurse Practitioner; Visit Provider Nurse Practitioner
DX: I25.10 Atherosclerotic heart disease of native coronary artery without angina pectoris (principal)
CPT/HCPCS: 36415; 80053; 80061; 85025

== ENCOUNTER → 2022-04-15 12:52 | Outpatient (CLI) | payer OTHER, SELFPAY ==
[2022-04-15 14:42] LABS: Blood Urea Nitrogen 16 mg/dL (9-20); Calcium 8.5 mg/dL (8.4-10.2); Carbon Dioxide 27 mmol/L (22-32); Chloride 103 mmol/L (98-107); Estimated Glomerular Filt Rate > 60 mL/min (>60); Glucose 96 mg/dL (80-110); Potassium 4.3 mmol/L (3.4-5.1); Sodium 136 mmol/L (137-145)
[2022-04-15 14:52] LABS: HEMOLYSIS 53 (0-50)
== END ==
PROVIDERS: PCP Student in an Organized Health Care Education/Training Program; Referring Provider Internal Medicine Cardiovascular Disease; Visit Provider Internal Medicine Cardiovascular Disease
DX: I25.10 Atherosclerotic heart disease of native coronary artery without angina pectoris (principal)
CPT/HCPCS: 36415; 80048

== ENCOUNTER 2023-08-20 12:30 | Outpatient (RCR) | payer OTHER, SELFPAY | END 2023-08-20 14:00 | LOC: CAR 12:30 | PROVIDERS: PCP Student in an Organized Health Care Education/Training Program; Referring Provider Internal Medicine Cardiovascular Disease; Visit Provider Internal Medicine Cardiovascular Disease | DX: Z95.5 Presence of coronary angioplasty implant and graft (principal) | CPT/HCPCS: 93798 ==